=== PATIENT | male | born 1990 | race Hispanic/Latino ===

== ENCOUNTER 2017-07-11 23:01 | Emergency (ER) | payer SELFPAY ==
[2017-07-11 23:11] VITALS: BP 129/60; PULSE 105; RESP 17; TEMP 99; O2SAT 99
[2017-07-11 23:16] VITALS: BMI 25.8
[2017-07-12] MEDS ORDERED: Naproxen 550 mg Tab PO STA (00:03)
--- NOTE | 2017-07-12 00:07 | ED PDOC ---
Arrival/HPI - General Chief Complaint: Lower Extremity Problem/Injury Time Seen by Provider: 07/11/17 23:39 Historian: Patient - History of Present Illness Narrative History of Present Illness (Text): 07/12/17 00:07 27 yo M reports several day h/o atraumtic L ankle pain and swelling. Patient states that he has been elevating his ankle, with improvement of the swelling, but then he goes to work where he does alot of walking and standing and the pain and swelling recurs. Patient can bear weight on ankle. Otherwise: (-) knee pain, (-) other injury, (-) fever, (-) other joint pain or swelling, (-) h/ o gout, (-) recent illness. Past Medical History - Provider Review Nursing Documentation Reviewed: Yes - Psychiatric Hx Substance Use: No - Anesthesia Hx Anesthesia: No Hx Anesthesia Reactions: No Hx Malignant Hyperthermia: No Family/Social History - Physician Review Nursing Documentation Reviewed: Yes Family/Social History: No Known Family HX Smoking Status: Never Smoked Hx Alcohol Use: Yes Frequency of alcohol use: Socially Hx Substance Use: No Allergies/Home Meds Allergies/Adverse Reactions: Allergies No Known Allergies Allergy (Verified 07/12/17 00:03) Review of Systems - Review of Systems Constitutional: Normal. absent: Fatigue, Weight Change, Fevers Musculoskeletal: Normal, Arthralgias, Joint Swelling. absent: Back Pain, Neck Pain Skin: Normal. absent: Rash, Pruritis, Skin Lesions Physical Exam - Physical Exam Narrative Physical Exam (Text): 07/12/17 00:06 GENERAL APPEARANCE: Patient is awake, alert, oriented x 3, in no acute distress. SKIN: Warm, dry; (-) cyanosis. LOWER EXTREMITY: Ankle: (-) erythema, (-) hot to touch, (-) swelling, tenderness of the medial aspect of the ankle; (+) swelling and tenderness of the lateral ankle, below the lateral malleolus; (+) full range of motion secondary to pain. Achilles tendon intact and nontender. Knee and foot: (-) injury. CARDIOVASCULAR: (+) distal pulse. NEUROLOGIC: (+) distal sensation. Vital Signs Temp Pulse Resp BP Pulse Ox 07/11/17 23:10 99.0 F 105 H 17 129/60 99 Medical Decision Making ED Course and Treatment: 07/12/17 00:04 27 yo M presents with several day h/o L ankle pain, no h/o trauma or injury. Plan : - XR L ankle - Naprosyn po XR L ankle : (-) fracture, (-) dislocation, as read by PA XR results d/w the patient in great detail. Osmany wrap applied to the L ankle. Advised to rest, ice, elevate and take NSAIDs as prescribed for pain. Instructed to follow up with primary care physician and ortho referral in 1-2 days without fail. Return to the emergency room at any time for any new or worsening symptoms. Patient states he fully agrees with and understands discharge instructions. States that he agrees with the plan and disposition. Verbalized and repeated discharge instructions and plan. I have given the patient opportunity to ask any additional questions. - RAD Interpretation Radiology Orders: 07/12/17 00:03 ANKLE LEFT 3 VIEWS ROUTINE [RAD] Stat - Medication Orders Current Medication Orders: Discontinued Medications Naproxen (Anaprox Ds) 550 mg PO ONCE STA Stop: 07/12/17 00:04 Last Admin: 07/12/17 00:15 Dose: 550 mg - PA / SERVER MANAGER / Resident Statement / has reviewed & agrees with the documentation as recorded. Disposition/Present on Arrival - Present on Arrival Any Indicators Present on Arrival: No History of DVT/PE: No History of Uncontrolled Diabetes: No Urinary Catheter: No History of Decub. Ulcer: No History Surgical Site Infection Following: None - Disposition Have Diagnosis and Disposition been Completed?: Yes Diagnosis: Ankle pain, left Disposition: HOME/ ROUTINE Disposition Time: 00:57 Patient Plan: Discharge Condition: STABLE Discharge Instructions (ExitCare): Swollen Joint (ED), Arthralgia (ED) Print Language: BULGARIAN Additional Instructions: Thank you for letting us take care of you today. You were treated for L ankle pain. The emergency medical care you received today was directed at your acute symptoms. If you were prescribed any medication, please fill it and take as directed. It may take several days for your symptoms to resolve. Return to the Emergency Department if your symptoms worsen, do not improve, or if you have any other problems. Please contact your doctor in 2 days for re-evaluation and follow up / or call one of the physicians/clinics you have been referred to that are listed on the Patient Visit Information form that is included in your discharge packet. Bring any paperwork you were given at discharge with you along with any medications you are taking to your follow up visit. Our treatment cannot replace ongoing medical care by a primary care provider (PCP) outside of the emergency department. Thank you for allowing the [facility] team to be part of your care today. If you had an X-Ray : A Radiologist will review the ED reading if any change in treatment is needed we will contact you. Prescriptions: Naproxen 500 mg PO BID #30 tab Referrals: Dave Sahni, DO [Staff Provider] - Follow up with primary Forms: [facility] ([place]), WORK NOTE
--- NOTE | 2017-07-12 08:33 | RAD ---
PROCEDURE: Left Ankle Radiographs. HISTORY: pain COMPARISON: None FINDINGS: BONES: Bone alignment and mineralization are normal. There is no acute displaced fracture or bone destruction. JOINTS: Normal. No osteoarthritis. Ankle mortise maintained. Talar dome intact SOFT TISSUES: There is mild lateral soft tissue swelling. OTHER FINDINGS: None. IMPRESSION: No acute fracture or dislocation. Mild lateral soft tissue swelling.
== END 2017-07-12 01:11 | disposition home or self-care (01) ==
LOC: ED 23:01
DX: M25.572 Pain in left ankle and joints of left foot (principal); M79.89 Other specified soft tissue disorders